=== PATIENT | male | born 1980 | race African-American/Black ===

== ENCOUNTER 2024-06-13 00:28 | Emergency (ER) | payer SELFPAY ==
[~2024-06-13] VITALS: Ht 182.9 cm; Wt 115.0 kg
[2024-06-13 00:29] VITALS: TEMP 97.1; O2SAT 98
[2024-06-13] MEDS: NALOXONE HCL 0.4MG/ML 1ML VIAL IV ONE (01:10)
[2024-06-13 01:17] LABS: HEMOGLOBIN. 14.4 g/dL (14.0-18.0); MEAN CORPUSCULAR HEMOGLOBIN 31.5 pg (28.0-32.0); MEAN CORPUSCULAR HGB CONC 32.8 g/dL (31.0-37.0); RED BLOOD CELL COUNT 4.59 mill/uL (4.7-6.1)
[2024-06-13 01:19] LABS: BASOPHILS % 0.5 % (0.0-2.0); EOSINOPHILS % 0.8 % (0.0-5.0); LYMPHOCYTES % 20.7 % (20.0-50.0); MEAN CORPUSCULAR VOLUME 95.8 fL (80.0-94.0); MEAN PLATELET VOLUME 7.9 fl (7.4-10.4); MONOCYTES % 4.7 % (2.0-8.0); NEUTROPHILS % 73.3 % (40.0-76.0); PLATELET 204 x1000/uL (130-400); RED CELL DISTRIBUTION WIDTH 13.9 % (11.6-14.6); WHITE BLOOD COUNT 11.6 x1000/uL (4.5-11.0)
[2024-06-13 01:23] LABS: CHLORIDE 106 mEq/L (98-107); POTASSIUM 3.6 mEq/L (3.5-5.1); SODIUM 139 mEq/L (136-145)
[2024-06-13 01:24] LABS: CALCIUM 9.2 mg/dL (8.7-10.4); CARBON DIOXIDE 24 mEq/L (21-32)
[2024-06-13 01:29] LABS: CREATININE 1.5 mg/dL (0.6-1.3); GLUCOSE 147 mg/dL (70-105); UREA NITROGEN BLOOD 12 mg/dL (9-23)
[2024-06-13 01:30] LABS: ETHANOL BLOOD 190 mg/dL (<10)
[2024-06-13] MEDS ORDERED: NALO4SPR BOTHNSTRLS (04:16)
[2024-06-13 04:46] VITALS: BP 146/68; PULSE 91; RESP 15; O2SAT 98
== END 2024-06-13 04:57 | disposition home or self-care (01) ==
LOC: ER 00:28
DX: T51.0X1A Toxic effect of ethanol, accidental (unintentional), initial encounter (principal); Y90.8 Blood alcohol level of 240 mg/100 ml or more
CPT/HCPCS: 80048; 80320; 85025; 36415; 71045; 93005; 96374; 99285; J2310; Z7610; G0480